=== PATIENT | male | born 1990 | race African-American/Black ===

== ENCOUNTER 2017-11-13 18:25 | Emergency (ER) | payer BC, OTHER ==
[2017-11-13] MEDS ORDERED: PREDNISONE 20 MG TABLET PO ONE (21:10)
[2017-11-13] MEDS ORDERED: ACYCLOVIR 800 MG TABLET PO ONE (21:10)
[2017-11-13] MEDS ORDERED: MORPHINE SULFATE IR 15 MG TABLET PO ONE (21:11)
[2017-11-13] MEDS ORDERED: IBUPROFEN 600 MG TABLET PO ONE (21:11)
[2017-11-13] MEDS ORDERED: ACETAMINOPHEN 325 MG TABLET PO ONE (21:11)
--- NOTE | 2017-11-13 21:14 | ER Document Report ---
ED General - General Chief Complaint: Rash Stated Complaint: RASH Time Seen by Provider: 11/13/17 20:28 Notes: Patient is a 27-year-old male without past medical history who presents with 3 days of a rash to his left flank and mid abdomen. Describes the rash as a constant, burning, searing pain that is worsened by touching the area. He has tried topical hydrocortisone and Tylenol with minimal to no improvement of the pain. He denies any history of similar symptoms in the past. He denies any history of immune compromise. He has not seen his primary doctor regarding today's concerns. No fever, vomiting, headache, neck pain or altered mental status. TRAVEL OUTSIDE OF THE [place] IN LAST 30 DAYS: No - Related Data Allergies/Adverse Reactions: No Known Allergies Allergy (Unverified 09/09/13 10:31) Past Medical History - General Information source: Patient - Social History Smoking Status: Current Every Day Smoker Frequency of alcohol use: Social Drug Abuse: Marijuana Lives with: Parents Family History: Reviewed & Not Pertinent Patient has suicidal ideation: No Patient has homicidal ideation: No Renal/ Medical History: Denies: Hx Peritoneal Dialysis - Immunizations Hx Diphtheria, Pertussis, Tetanus Vaccination: Yes Review of Systems - Review of Systems Notes: Constitutional: Negative for fever. HENT: Negative for sore throat. Eyes: Negative for visual changes. Cardiovascular: Negative for chest pain. Respiratory: Negative for shortness of breath. Gastrointestinal: Negative for abdominal pain, vomiting or diarrhea. Genitourinary: Negative for dysuria. Musculoskeletal: Negative for back pain. Skin: Positive for rash. Neurological: Negative for headaches, weakness or numbness. 10 point ROS negative except as marked above and in HPI. Physical Exam - Vital signs Vitals: Temp Pulse Resp BP Pulse Ox 99.1 F 62 16 106/55 L 99 11/13/17 18:30 11/13/17 18:30 11/13/17 18:30 11/13/17 18:30 11/13/17 18:30 Interpretation: Normal Notes: PHYSICAL EXAMINATION: GENERAL: Well-appearing, well-nourished and in no acute distress. HEAD: Atraumatic, normocephalic. EYES: Pupils equal round and reactive to light, extraocular movements intact, sclera anicteric, conjunctiva are normal. ENT: nares patent, oropharynx clear without exudates. Moist mucous membranes. NECK: Normal range of motion, supple without lymphadenopathy LUNGS: Breath sounds clear to auscultation bilaterally and equal. No wheezes rales or rhonchi. HEART: Regular rate and rhythm without murmurs ABDOMEN: Soft, nontender, normoactive bowel sounds. No guarding, no rebound. No masses appreciated. EXTREMITIES: Normal range of motion, no pitting or edema. No cyanosis. NEUROLOGICAL: No focal neurological deficits. Moves all extremities spontaneously and on command. PSYCH: Normal mood, normal affect. SKIN: Warm, Dry, normal turgor, vesicular rash scattered in 3 distinct patches over the left torso and flank Course - Re-evaluation Re-evalutation: 11/13/17 21:11 Patient presents with signs and symptoms most consistent with acute shingles in the distribution along the left mid abdomen and flank. He is otherwise well in appearance, vitals within normal limits, no ocular or otic involvement. No neurologic symptoms. Patient denies any risk factors for immune suppression including IV drug use, risky sexual practices, or use of immunosuppressants. I have informed the patient that he will need to follow-up with his primary care physician for HIV testing as well as a full panel laboratories to evaluate for any risk of immune compromise. He will be started on acyclovir, steroids and pain control here in the emergency department. At this time will discharge with return precautions and follow-up recommendations. Verbal discharge instructions given a the bedside and opportunity for questions given. Medication warnings reviewed. Patient is in agreement with this plan and has verbalized understanding of return precautions and the need for primary care follow-up in the next 24-72 hours. - Vital Signs Vital signs: Temp Pulse Resp BP Pulse Ox 99.0 F 67 16 100/49 L 97 11/13/17 21:41 11/13/17 21:41 11/13/17 21:41 11/13/17 21:41 11/13/17 21:41 Discharge - Discharge Clinical Impression: Shingles Qualifiers: Herpes zoster complications: without complications Qualified Code(s): B02.9 - Zoster without complications Condition: Good Disposition: HOME, SELF-CARE Additional Instructions: You have been diagnosed with shingles. This is a reemergence of the chickenpox virus onto your skin. You need to have a workup completed for any possible immunosuppressive illnesses although otherwise healthy people do sometimes get shingles. You are being sent home with antiviral medications as well as steroids to help speed up your recovery and improve your symptoms. For your pain: Take ibuprofen 600 mg and acetaminophen 1000 mg every 6 hours together as needed for pain. If this does not control your pain you may take 15 mg of oral morphine every 4 hours as needed. Please be very careful about using the oral morphine and only use this for severe pain. Return if you have worsening of your rash, fever, confusion, persistent vomiting, neck pain, or any other symptoms that are worrisome to you. Prescriptions: Morphine Sulfate [Morphine Ir 15 mg Tablet] 15 mg PO Q4HP PRN #12 tablet PRN Reason: Acyclovir 800 mg PO 5XD #35 tablet Prednisone [Deltasone 20 mg Tablet] 3 tab PO DAILY 5 Days tablet
[2017-11-13 21:47] VITALS: BP 100/49
== END 2017-11-13 21:47 | disposition home or self-care (01) ==
LOC: ER 18:25
DX: B02.9 Zoster without complications (principal); F17.200 Nicotine dependence, unspecified, uncomplicated
CPT/HCPCS: 99282; J7512; J3490

== ENCOUNTER 2017-12-07 15:27 | Emergency (ER) | payer OTHER ==
[2017-12-07] MEDS ORDERED: NORMAL SALINE 1000 ML 1,000 ML IV ONE (15:54)
[2017-12-07] MEDS ORDERED: KETOROLAC TROMETHAMINE INJ/PF 30 MG/1 ML SDV IV ONE (15:54)
[2017-12-07] MEDS ORDERED: PROCHLORPERAZINE EDISYLATE INJ 10 MG/2 ML VIAL IV ONE (15:54)
[2017-12-07 16:44] LABS: HEMOGLOBIN 14.2 g/dL (13.5-17.0); MEAN CORPUSCULAR HEMOGLOBIN 26.3 pg (27.0-33.4); MEAN CORPUSCULAR HGB CONC 32.9 g/dL (32.0-36.0); MEAN CORPUSCULAR VOLUME 80 fl (80-97); PLATELET COUNT 130 10^3/uL (150-450); RED BLOOD COUNT 5.39 10^6/uL (4.35-5.55); RED CELL DISTRIBUTION WIDTH 14.5 % (11.5-14.0); WHITE BLOOD COUNT 2.6 10^3/uL (4.0-10.5)
[2017-12-07 16:59] LABS: ALANINE AMINOTRANSFERASE 22 U/L (21-72); ALBUMIN 4.3 g/dL (3.5-5.0); ALKALINE PHOSPHATASE 57 U/L (38-126); ANION GAP 11 (5-19); ASPARTATE AMINO TRANSFERASE 21 U/L (17-59); BILIRUBIN,DIRECT 0.4 mg/dL (0.0-0.4); BILIRUBIN,TOTAL 0.5 mg/dL (0.2-1.3); BLOOD UREA NITROGEN 12 mg/dL (7-20); CARBON DIOXIDE 30 mmol/L (22-30); CHLORIDE 100 mmol/L (98-107); GLUCOSE 83 mg/dL (75-110); LIPASE 147.1 U/L (23-300); POTASSIUM 4.2 mmol/L (3.6-5.0); SODIUM 140.6 mmol/L (137-145); TOTAL PROTEIN 7.5 g/dL (6.3-8.2)
[2017-12-07 17:03] LABS: ABSOLUTE MONOCYTES # (MANUAL) 0.4 10^3/uL (0.1-1.4); ABSOLUTE NEUTROPHILS# (MANUAL) 1.1 10^3/uL (1.7-8.2); ANISOCYTOSIS SLIGHT; BAND NEUTROPHILS % (MANUAL) 2 % (3-5); BASOPHILS % (MANUAL) 0 % (0-2); EOSINOPHILS % (MANUAL) 1 % (0-6); LYMPHOCYTES % (MANUAL) 40 % (13-45); MONOCYTES % (MANUAL) 17 % (3-13); SEGMENTED NEUTROPHILS % (MAN) 40 % (42-78); TOTAL CELLS COUNTED 100
[2017-12-07 17:04] LABS: OVALOCYTES SLIGHT; PLATELET COMMENT ADEQUATE; POIKILOCYTOSIS SLIGHT
[2017-12-07 17:19] LABS: A TYPE INFLUENZA AG NEGATIVE (NEGATIVE); B INFLUENZA AG NEGATIVE (NEGATIVE)
[2017-12-07] MEDS ORDERED: DIPHENHYDRAMINE HCL 50 MG/ML VIAL IV ONE (17:50)
--- NOTE | 2017-12-07 17:52 | ER Document Report ---
ED Headache - General Chief Complaint: Headache Stated Complaint: HEADACHE, DIZZY, NAUSEA Time Seen by Provider: 12/07/17 15:47 Mode of Arrival: Ambulatory Information source: Patient Notes: Patient is a 27-year-old male who presents to the ER today for 3 days of headache, cough, some nausea, diarrhea, chills. Patient does not know if he has had a fever or not. He denies any chest pain, shortness of breath or wheezing, difficulty breathing. He denies any vomiting. He has a history of headaches but does not take anything for them. He states he has been trying Tylenol and ibuprofen [id number] but it has not been helping. TRAVEL OUTSIDE OF THE [place] IN LAST 30 DAYS: No - Related Data Allergies/Adverse Reactions: No Known Allergies Allergy (Verified 12/07/17 15:28) Past Medical History - General Information source: Patient - Social History Smoking Status: Current Every Day Smoker Chew tobacco use (# tins/day): No Frequency of alcohol use: Occasional Drug Abuse: Marijuana Family History: Reviewed & Not Pertinent Patient has suicidal ideation: No Patient has homicidal ideation: No Renal/ Medical History: Denies: Hx Peritoneal Dialysis - Immunizations Hx Diphtheria, Pertussis, Tetanus Vaccination: Yes Review of Systems - Review of Systems Constitutional: See HPI EENT: No symptoms reported Cardiovascular: No symptoms reported Respiratory: See HPI Gastrointestinal: See HPI Genitourinary: No symptoms reported Male Genitourinary: No symptoms reported Musculoskeletal: No symptoms reported Skin: No symptoms reported Hematologic/Lymphatic: No symptoms reported Neurological/Psychological: See HPI Physical Exam - Vital signs Vitals: Temp Pulse Resp BP Pulse Ox 99.1 F 67 16 110/55 L 98 12/07/17 15:35 12/07/17 15:35 12/07/17 15:35 12/07/17 15:35 12/07/17 15:35 - Notes Notes: PHYSICAL EXAMINATION: GENERAL: Well-appearing and in no acute distress. HEAD: Atraumatic, normocephalic. EYES: Pupils equal round and reactive to light, extraocular movements intact, sclera anicteric, conjunctiva are normal. ENT: ear canals without erythema or foreign body, TMs pearly purcell with good bony landmarks, nares patent, oropharynx clear without exudates. Moist mucous membranes. NECK: Normal range of motion, supple without lymphadenopathy LUNGS: CTAB and equal. No wheezes rales or rhonchi. HEART: Regular rate and rhythm without murmurs ABDOMEN: Soft, no tenderness. No guarding, no rebound BACK: no vertebral tenderness, normal ROM GI/: no CVA tenderness EXTREMITIES: Normal range of motion, no pitting edema. No cyanosis. NEUROLOGICAL: Cranial nerves grossly intact. Normal sensory/motor exams. PSYCH: Normal mood, normal affect. SKIN: Warm, Dry, normal turgor, no rashes or lesions noted Course - Re-evaluation Re-evalutation: 12/07/17 18:24 Patient looks well, lab work really unremarkable, will treat patient for viral syndrome with a negative flu test today. Patient's headache is better after Toradol, Benadryl and Compazine, IV fluids. - Vital Signs Vital signs: Temp Pulse Resp BP Pulse Ox 97.9 F 64 16 95/53 L 98 12/07/17 18:07 12/07/17 18:07 12/07/17 18:07 12/07/17 18:07 12/07/17 18:07 - Laboratory Result Diagrams: 12/07/17 16:10 12/07/17 16:10 Laboratory results interpreted by me: 12/07/17 12/07/17 16:10 17:40 WBC 2.6 L MCH 26.3 L RDW 14.5 H Plt Count 130 L Seg Neuts % (Manual) 40 L Band Neutrophils % 2 L Monocytes % (Manual) 17 H Abs Neuts (Manual) 1.1 L Urine Protein 30 H Urine Urobilinogen 4.0 H Discharge - Discharge Clinical Impression: Headache Qualifiers: Headache type: unspecified Headache chronicity pattern: acute headache Intractability: not intractable Qualified Code(s): R51 - Headache URI (upper respiratory infection) Qualifiers: URI type: acute nasopharyngitis (common cold) Qualified Code(s): J00 - Acute nasopharyngitis [common cold] Condition: Stable Disposition: HOME, SELF-CARE Additional Instructions: Return immediately for any new or worsening symptoms. Follow up with primary care provider, call tomorrow to make followup appointment. Prescriptions: Ibuprofen [Motrin 600 mg Tablet] 600 mg PO Q8HP PRN #30 tablet PRN Reason: Promethazine HCl [Phenergan 25 mg Tablet] 1 - 2 tab PO Q6H PRN #15 tablet PRN Reason: Forms: Return to Work
[2017-12-07 18:04] LABS: APPEARANCE,URINE SLIGHTLY-CLOUDY; BILIRUBIN,URINE NEGATIVE (NEGATIVE); COLOR,URINE YELLOW; GLUCOSE, URINE NEGATIVE (NEGATIVE); KETONES,URINE NEGATIVE (NEGATIVE); LEUKOCYTE ESTERASE,URINE NEGATIVE (NEGATIVE); NITRITE,URINE NEGATIVE (NEGATIVE); PROTEIN,URINE 30 mg/dL (NEGATIVE); URINE SPECIFIC GRAVITY 1.031
[2017-12-07 18:21] VITALS: BP 95/53
== END 2017-12-07 18:22 | disposition home or self-care (01) ==
LOC: ER 15:27
DX: J00 Acute nasopharyngitis [common cold] (principal); R51 Headache; R42 Dizziness and giddiness; R11.0 Nausea; R05 Cough; R19.7 Diarrhea, unspecified; F17.200 Nicotine dependence, unspecified, uncomplicated
CPT/HCPCS: 99284; 96361; 96374; 96375; 36415; 83690; 85025; 80053; 81001; 87804; J1885; J0780; J7030

== ENCOUNTER 2018-04-29 23:11 | Emergency (ER) | payer OTHER ==
[2018-04-29 23:23] VITALS: BP 117/64
[2018-04-29] MEDS ORDERED: DIPH/PERTUSS(ACELL)/TETANUS VAC/PF 0.5 ML SYR (>=10YO) IM ONE (23:52)
--- NOTE | 2018-04-29 23:54 | ER Document Report ---
ED Medical Screen (RME) - General Chief Complaint: Finger Injury Stated Complaint: FINGER INJURY TRAVEL OUTSIDE OF THE [place] IN LAST 30 DAYS: No - HPI Notes: 04/29/18 23:53 27-year-old male just prior to arrival cut his dominant third finger on a piece of glass. No shards, no foreign body. Tetanus out of date. Bleeding controlled. Sustain a laceration of the dorsal third finger DIP region. - Related Data Allergies/Adverse Reactions: No Known Allergies Allergy (Verified 12/07/17 15:28) Past Medical History - Social History Chew tobacco use (# tins/day): No Frequency of alcohol use: Occasional Drug Abuse: Marijuana - Medical History Medical History: Negative Renal/ Medical History: Denies: Hx Peritoneal Dialysis - Immunizations Hx Diphtheria, Pertussis, Tetanus Vaccination: Yes Review of Systems - Review of Systems Notes: Review of systems as in history of present illness, otherwise no significant headache, chest pain, abdominal pain. Physical Exam - Vital signs Vitals: Temp Pulse Resp BP Pulse Ox 99.2 F 60 16 117/64 98 04/29/18 23:20 04/29/18 23:20 04/29/18 23:20 04/29/18 23:20 04/29/18 23:20 - Notes Notes: Left third finger has a proximal 1 cm laceration proximal to the DIP. He is unable extend at the DIP. Otherwise normal neurovascular exam. Course - Vital Signs Vital signs: Temp Pulse Resp BP Pulse Ox 99.2 F 60 16 117/64 98 04/29/18 23:20 04/29/18 23:20 04/29/18 23:20 04/29/18 23:20 04/29/18 23:20
[2018-04-29] MEDS ORDERED: LIDOCAINE 1%/EPINEPHRINE INJ 20 ML VIAL INJ ONE (23:56)
--- NOTE | 2018-04-30 00:26 | ER Document Report ---
ED General - General Chief Complaint: Finger Injury Stated Complaint: FINGER INJURY TRAVEL OUTSIDE OF THE [place] IN LAST 30 DAYS: No - HPI Notes: 27-year-old male who presents with nondominant hand and with possible extensor tendon injury. Just prior to arrival, patient had cut his finger on a i single piece of broken glass. Sustained a laceration to his dorsal left finger/third finger. Bleeding controlled. Tetanus out of date. Sharp throbbing pain, nonradiating. No other modifying factors, no other associated symptoms, no other provocative or palliative factors. - Related Data Allergies/Adverse Reactions: No Known Allergies Allergy (Verified 12/07/17 15:28) Past Medical History - Social History Smoking Status: Current Some Day Smoker Chew tobacco use (# tins/day): No Frequency of alcohol use: Occasional Drug Abuse: Marijuana Family History: Reviewed & Not Pertinent Patient has suicidal ideation: No Patient has homicidal ideation: No - Medical History Medical History: Negative Renal/ Medical History: Denies: Hx Peritoneal Dialysis - Immunizations Hx Diphtheria, Pertussis, Tetanus Vaccination: Yes Review of Systems - Review of Systems Notes: Review of systems as in history of present illness, otherwise no significant headache, chest pain, abdominal pain. Physical Exam - Vital signs Vitals: Temp Pulse Resp BP Pulse Ox 99.2 F 60 16 117/64 98 04/29/18 23:20 04/29/18 23:20 04/29/18 23:20 04/29/18 23:20 04/29/18 23:20 - Notes Notes: General: Well devloped, no acute distress. HEENT: Normocephalic, atraumatic. Pupils equal round reactive to light. Mucosa moist. No JVD. Chest: No trauma, normal excursion. Respiratory: Good air exchange, normal excursion. Cardiac: Regular rhythm Abdomen: Soft, benign. Nondistended. Back: No asymmetry or gross abnormality. Motor: Grossly normal power and tone. Neurologic: Alert, nonfocal. Vascular: Well perfused Skin: No petechiae or purpura Extremities: Approximate 1 cm laceration noted to the distal dorsal third finger of the left hand. Right at the DIP joint. Neurovascular intact distally. Bleeding controlled. He has complete loss of extension at the third finger DIP. Course - Re-evaluation Re-evalutation: 04/30/18 00:23 27-year-old male with likely extensor tendon laceration and laceration as described below. Lacerations repaired, placed in extension splint, referred to hand surgery. Tetanus is updated. He is given a dose of antibiotics in the ED and a prescription for the same. Procedure note: Local anesthesia was achieved with 1% lidocaine. Wound is irrigated copiously with saline and explored, no evidence of nerve or vascular disruption, no evidence of foreign body. There appears to be complete disruption of the DIP extensor tendon mechanism/attachment. The skin wound is repaired using 5-0 Ethilon for a total of 1 cm closure. - Vital Signs Vital signs: Temp Pulse Resp BP Pulse Ox 99.2 F 60 16 117/64 98 04/29/18 23:20 04/29/18 23:20 04/29/18 23:20 04/29/18 23:20 04/29/18 23:20 Discharge - Discharge Clinical Impression: Extensor tendon laceration of hand with open wound Qualifiers: Encounter type: initial encounter Laterality: left Qualified Code(s): S66.822A - Laceration of other specified muscles, fascia and tendons at wrist and hand level, left hand, initial encounter Condition: Good Disposition: HOME, SELF-CARE Instructions: Laceration Care ([facility]), Prophylactic Antibiotic ([facility]), Tendon Laceration ([facility]) Prescriptions: Cephalexin Monohydrate [Keflex 500 mg Capsule] 500 mg PO Q6H 7 Days #28 capsule Referrals: RAFAEL RIVERA MD [Primary Care Provider] - Follow up as needed KAREN CABEZAS DO [ACTIVE STAFF] - Follow up tomorrow
[2018-04-30] MEDS ORDERED: CEPHALEXIN 500 MG CAPSULE PO ONE (00:32)
== END 2018-04-30 01:05 | disposition home or self-care (01) ==
LOC: ER 23:11
DX: S66.323A Laceration of extensor muscle, fascia and tendon of left middle finger at wrist and hand level, initial encounter (principal); S61.213A Laceration without foreign body of left middle finger without damage to nail, initial encounter; W25.XXXA Contact with sharp glass, initial encounter; F17.200 Nicotine dependence, unspecified, uncomplicated; F12.10 Cannabis abuse, uncomplicated; Z23 Encounter for immunization
CPT/HCPCS: 99282; 90471; 90715; 12001; J3490